=== PATIENT | male | born 1975 | race Caucasian/White ===

== ENCOUNTER 2017-05-01 11:58 | Observation (INO) ==
--- NOTE | 2017-05-01 12:10 | Emergency Department Note ---
Disposition Clinical Impression: Chest pain Disposition: Admitted As Inpatient Condition: Good General Adult HPI - General Chief complaint: ED Chest Pain Stated complaint: blood clot Time Seen by Provider: 05/01/17 12:05 Source: patient Limitations: no limitations - History of Present Illness Pain Scale: 4 - Related Data Home Medications Medication Instructions Recorded Confirmed ALPRAZolam [Xanax 0.5 MG Tablet] 0.5 mg PO QID PRN 05/01/17 05/01/17 Aspirin 325 mg PO DAILY 05/01/17 05/01/17 Atorvastatin Calcium [Lipitor] 20 mg PO QPM 05/01/17 05/01/17 Lisinopril [Zestril] 20 mg PO DAILY 05/01/17 05/01/17 Metoprolol Succinate 25 mg PO DAILY 05/01/17 05/01/17 Omeprazole [PriLOSEC] 40 mg PO DAILY 05/01/17 05/01/17 Primidone [Mysoline] 25 mg PO BID 05/01/17 05/01/17 traZODone [TraZODone] 50 - 100 mg PO HS 05/01/17 05/01/17 Allergies Allergy/AdvReac Type Severity Reaction Status Date / Time hydrocodone [From [place]] AdvReac heart Verified 12/26/16 16:48 racing ketorolac [From Toradol] AdvReac Hallucinati Verified 12/26/16 16:48 ng Past Medical History - Past Medical History Medical history: Reports: atrial fibrillation, hyperlipidemia, hypertension Surgical history: Reports: orthopedic, other Psychiatric history: Reports: anxiety, bipolar - Social History Smoking Status: Former smoker Smokeless Tobacco Status: No Alcohol use: Reports: none Drug use: Reports: none Physical Exam - General Limitations: no limitations General appearance: alert, in no apparent distress Course Vital Signs Temperature 98.1 F 05/01/17 11:59 Pulse Rate 80 05/01/17 11:59 Respiratory Rate 18 05/01/17 11:59 Blood Pressure 152/110 05/01/17 11:59 O2 Sat by Pulse Oximetry 96 05/01/17 11:59 Temperature 98.7 F 05/02/17 11:18 Pulse Rate 87 05/02/17 11:18 Respiratory Rate 18 05/02/17 11:18 Blood Pressure 119/79 05/02/17 11:18 O2 Sat by Pulse Oximetry 93 05/02/17 11:18 Oxygen Delivery Oxygen Delivery Room Air Medical Decision Making - Lab Data Result diagrams: 05/02/17 06:17 05/02/17 06:17 Lab Results 05/01/17 05/01/17 Range/Units 12:27 12:27 Sodium 138 (136-145) mEq/L Potassium 4.6 H (3.5-4.5) mEq/L Chloride 107 (98-109) mEq/L Carbon Dioxide 20 (19-29) mEq/L BUN 14 (8-26) mg/dL Creatinine 0.82 (0.72-1.25) mg/dL Est GFR ( Amer) > 60 (> 60) Est GFR (Non-Af Amer) > 60 (> 60) BUN/Creatinine Ratio 17 (6-26) Glucose 102 H (70-99) mg/dL Calculated Osmolality 287 (280-300) Calcium 9.5 (8.6-10.8) mg/dL Troponin I 0.00 (0-0.03) ng/mL Attestation Statement - Attestation Attestation: I examined this patient and my medical decision-making was reviewed with the Resident Physician. I agree with the documented findings, disposition and treatment plan as described except to the extent set forth below. [id number] time provided Patient arrives at the recommendation of his primary care provider after having an abnormal lab value as an [id number] was greater than 4000. He does complain of chest discomfort. He does not appear in any acute distress on exam
[2017-05-01 12:50] LABS: BUN/Creatinine Ratio 17 (6-26); Blood Urea Nitrogen 14 mg/dL (8-26); Calcium 9.5 mg/dL (8.6-10.8); Carbon Dioxide 20 mEq/L (19-29); Chloride 107 mEq/L (98-109); Glucose 102 mg/dL (70-99); Osmolality,Calculated 287 (280-300); Sodium 138 mEq/L (136-145); eGFR For African Americans > 60 (> 60); eGFR For Non-African Americans > 60 (> 60)
[2017-05-01 12:51] LABS: Potassium 4.6 mEq/L (3.5-4.5)
--- NOTE | 2017-05-01 14:06 | Emergency Department Note ---
Disposition Clinical Impression: Chest pain Qualifiers: Chest pain type: other chest pain Qualified Code(s): R07.89 - Other chest pain ; R07.8 - Other chest pain Disposition: Admitted As Inpatient Condition: Good Referrals: Jimy Sharif MD [Primary Care Provider] - Forms: ED Satisfaction Letter Time of Disposition: 14:33 General Adult HPI - General Chief complaint: ED Chest Pain Stated complaint: blood clot Time Seen by Provider: 05/01/17 12:05 Source: patient Mode of arrival: ambulatory Limitations: no limitations Nursing Notes Reviewed: Yes Vital Signs Reviewed: Yes - History of Present Illness HPI Narrative: Patient is a 41-year-old male presented to the emergency Department chief complaint of elevated d-dimer done as an outpatient. Patient states for the last week he has had constant substernal chest pressure along with increased shortness of breath. He went to his primary care physician to complete an EKG, chest x-ray, troponin, d-dimer. All other lab work was within normal limits. He states his d-dimer was elevated at around 4000. His primary care physician called him and told him he needed to come to the emergency department to get ruled out for a blood clot. Patient is otherwise in no acute distress. He states he is still currently having chest pressure but states he has severe anxiety and these are similar symptoms. He denies any history of blood clot, recent long travels, hormonal replacement, family history of blood clots. Patient does have a significant past medical history of A. fib and takes a baby aspirin daily. Pain Scale: 4 - Related Data Previous Rx's Medication Instructions Recorded Benzonatate [Tessalon] 100 mg PO TID PRN #15 capsule 05/17/15 Naproxen Sodium [Aleve] 440 mg PO BID #20 capsule 07/22/16 Allergies Allergy/AdvReac Type Severity Reaction Status Date / Time hydrocodone [From [place]] AdvReac heart Verified 12/26/16 16:48 racing ketorolac [From Toradol] AdvReac Hallucinati Verified 12/26/16 16:48 ng All systems ED: reviewed and negative except as stated. Constitutional: Denies: fever, chills Eyes: Reports: as per HPI ENT ED: Reports: as per HPI Cardiovascular: Reports: chest pain, dyspnea on exertion. Denies: palpitations Respiratory: Reports: dyspnea. Denies: cough, wheezes, hemoptysis Gastrointestinal: Denies: abdominal pain, nausea, vomiting Genitourinary: Reports: as per HPI Musculoskeletal: Reports: as per HPI Integumentary: Reports: as per HPI Neurological: Denies: weakness, numbness, paresthesias Psychiatric: Reports: anxiety Endocrine: Reports: as per HPI Hematological/Lymphatic: Reports: as per HPI Allergic/Immunologic: Reports: as per HPI Past Medical History - Past Medical History Attestation: Yes The following information was validated with the patient. Medical history: Reports: atrial fibrillation, hyperlipidemia, hypertension Surgical history: Reports: orthopedic, other Psychiatric history: Reports: anxiety, bipolar - Social History Smoking Status: Former smoker Smokeless Tobacco Status: No Alcohol use: Reports: none Drug use: Reports: none Physical Exam - General Limitations: no limitations General appearance: alert, in no apparent distress - Head Head exam: atraumatic, normocephalic, normal inspection - Eye Eye exam: Present: normal appearance. Absent: scleral icterus, conjunctival injection - Chest Chest inspection: Present: normal inspection, symmetric chest wall rise. Absent : tenderness, rash - Respiratory Respiratory exam: Present: normal lung sounds bilaterally. Absent: respiratory distress, wheezes - Cardiovascular Cardiovascular exam: Present: regular rate, normal rhythm, normal heart sounds - Abdominal Exam Abdominal exam: Present: soft, Non-Tender. Absent: distention, guarding, rebound - Extremities Exam Extremities exam: Present: normal inspection, full ROM - Back Exam Back exam: Present: normal inspection. Absent: CVA tenderness (R), CVA tenderness (L) - Neurological Exam Neurological exam: Present: alert, oriented X3 - Psychiatric Psychiatric exam: Present: normal affect, anxious - Skin Skin exam: Present: warm, intact Course Course Narrative: Patient is a 41-year-old male presenting to the emergency department which complaint of shortness of breath and chest pain along with an elevated d-dimer for one week. Patient was sent by his primary care physician due to an elevated d-dimer of around 4100. Patient states he also had left lower extremity pain. We will obtain a Doppler of the left lower extremity along with a CTA. We will obtain basic lab work including troponin and BNP. Patient most likely will be admitted to the hospitalist team due to elevated hearts were due to significant past family history and symptoms now. Disposition pending results. Patient's alert and oriented 3 in the room with stable vital signs at this time. - Reevaluation(s) Reevaluation #1: All patient's lab work has come back within normal limits including a CTA and Doppler study of left lower extremity. The patient's heart score is 3. I spoke with the patient who agrees to be admitted to the hospital at this time for chest pain rule out. I spoke with the hospitalist Aric Bartholomew who agrees to accept the patient. Time: 14:32 Vital Signs Temperature 98.1 F 05/01/17 11:59 Pulse Rate 80 05/01/17 11:59 Respiratory Rate 18 05/01/17 11:59 Blood Pressure 152/110 05/01/17 11:59 O2 Sat by Pulse Oximetry 96 05/01/17 11:59 Temperature 98.1 F 05/01/17 11:59 Pulse Rate 80 05/01/17 11:59 Respiratory Rate 18 05/01/17 11:59 Blood Pressure 152/110 05/01/17 11:59 O2 Sat by Pulse Oximetry 96 05/01/17 11:59 Oxygen Delivery Oxygen Delivery Room Air Medical Decision Making - Lab Data Result diagrams: 05/01/17 12:27 Lab Results 05/01/17 05/01/17 Range/Units 12:27 12:27 Sodium 138 (136-145) mEq/L Potassium 4.6 H (3.5-4.5) mEq/L Chloride 107 (98-109) mEq/L Carbon Dioxide 20 (19-29) mEq/L BUN 14 (8-26) mg/dL Creatinine 0.82 (0.72-1.25) mg/dL Est GFR ( Amer) > 60 (> 60) Est GFR (Non-Af Amer) > 60 (> 60) BUN/Creatinine Ratio 17 (6-26) Glucose 102 H (70-99) mg/dL Calculated Osmolality 287 (280-300) Calcium 9.5 (8.6-10.8) mg/dL Troponin I 0.00 (0-0.03) ng/mL - EKG Data EKG #1 EKG attestation: Yes I reviewed and interpreted this EKG. EKG results narrative: Sinus rhythm. 75 bpm. Left axis deviation. HI interval 142, QRS 104, QTC 399. No signs of ST segment elevation or ischemia at this time. When compared to previous EKG completed on 12/26/2016 no specific changes noted.
[2017-05-01] MEDS ORDERED: Acetaminophen 325 MG TABLET PO PRN (18:01)
[2017-05-01] MEDS ORDERED: Naloxone 0.4 MG/ML INJ IVP PRN (18:01)
[2017-05-01] MEDS ORDERED: ALPRAZolam 0.5 MG TABLET PO PRN (18:05)
--- NOTE | 2017-05-01 18:11 | Internal Med History&Physical ---
Date of Encounter: 05/02/17 Time of Encounter: 18:08 Assessment and Plan (1) Chest pain Current visit: Yes Status: Acute Patient has a retrosternal, non-remitting, localized, chest pain which worsens with movement and respiration and relieved by rest. This is nonanginal chest pain. Patient also has a shortness of breath. Patient was evaluated by primary care and recommended workup for elevated d- dimer. CTA from emergency room: Negative for pulmonary embolism. Patient recently lost his job, girlfriend, house and presently lives with his sister. Patient is under a lot of stress. Plan: -Admitted as an observation. -ASA/statin/lisinopril. Metoprolol on hold due to possible stress test tomorrow. -Nothing by mouth after midnight -Echocardiogram. Qualifiers: Chest pain type: other chest pain Qualified Code(s): R07.89 - Other chest pain; R07.8 - Other chest pain (2) Left-sided chest wall pain Current visit: No Status: Acute Likely muscular skeletal. (3) DVT prophylaxis Current visit: Yes Status: Acute SCD Medical decision making: This patient has a moderate to severe risk of worsening in spite of being on appropriate medication due to the underlying comorbid conditions. Internal Medicine - H&P: HPI Chief complaint: Chest pain/shortness of breath Admitted From: Emergency Dept Plans for Post Hospital Care: Home History of present illness: PCP: Dr. Cardona Past medical history: Atrial fibrillation on aspirin, hyperlipidemia, hypertension. Brief history of present illness: Patient was seen by primary care physician sometime early this week.Basic labs were drawn.Patient was told to come to the hospital to get evaluation done for possible blood clots as his d-dimer was elevated. Patient was supposed to see primary care physician but unfortunately could not get the appointment and that is the reason he came to the emergency room. In the emergency room he was evaluated. Patient complains of chest pain which is retrosternal in position nonradiating and localized worsening with them position/movement and relieved by rest. Patient also complains of shortness of breath. Patient denies nausea, vomiting, abdominal pain, easiness or diarrhea. Course in the emergency room: Basic labs were drawn again. It showed potassium of 4.6 with breast electro-lytes within normal limit. CTA was done which was negative for any acute pulmonary embolism. Reason for admission: Chest pain to rule out ACS. Family history: noncontributory. Past Med Surg Social Fam HX - Past Medical History Medical history: atrial fibrillation, hyperlipidemia, hypertension Psychiatric history: anxiety, bipolar - Past Surgical History Surgical History: orthopedic, other - Social History Smoking Status: Former smoker Smokeless Tobacco Status: No Alcohol use: none Drug use: none - Family History Father Name: Chalo Cee Living Status: Age at : 62 Cause of : lung cancer Hx Family Cancer: Yes Internal Medicine - H&P: Meds ALPRAZolam [Xanax 0.5 MG Tablet] 0.5 mg PO QID PRN 05/01/17 [History] Aspirin 325 mg PO DAILY 05/01/17 [History] Atorvastatin Calcium [Lipitor] 20 mg PO QPM 05/01/17 [History] Lisinopril [Zestril] 20 mg PO DAILY 05/01/17 [History] Metoprolol Succinate 25 mg PO DAILY 05/01/17 [History] Omeprazole [PriLOSEC] 40 mg PO DAILY 05/01/17 [History] Primidone [Mysoline] 25 mg PO BID 05/01/17 [History] traZODone [TraZODone] 50 - 100 mg PO HS 05/01/17 [History] 3 Allergy/AdvReac Type Severity Reaction Status Date / Time hydrocodone [From [place]] AdvReac heart Verified 12/26/16 16:48 racing ketorolac [From Toradol] AdvReac Hallucinati Verified 12/26/16 16:48 ng All Systems PM: A 10-system review of systems was performed and is negative for pertinent findings except as documented above in the HPI. - Constitutional Constitutional: no chills, no fever(s), no night sweats - EENT Eyes: no change in vision, no discharge, no pain, no photophobia Ears: no ear discharge, no ear pain, no tinnitus Nose, mouth and throat: no dysphagia, no nasal discharge, no neck pain, no sore throat - Cardiovascular Cardiovascular ROS IM: chest pain, diaphoresis, dyspnea, dyspnea on exertion, no lightheadedness, no palpitations, no syncope - Respiratory Respiratory: no cough, no dyspnea, no wheezing, no excessive phlegm production - Gastrointestinal Gastrointestinal: no abdominal pain, no diarrhea, no hematemesis, no hematochezia, no melena, no nausea, no vomiting - Musculoskeletal Musculoskeletal ROS IM: no numbness, no tingling - Integumentary Integumentary IM: no rash, no unusual bruising - Neurological Neurological ROS: no confusion, no convulsions, no focal weakness, no numbness, no tingling, no tremor(s) - Hematologic/Lymphatic Hematologic/Lymphatic: no easy bruising - Constitutional Vitals: Temp Pulse Resp BP Pulse Ox 98.3 F 67 16 122/80 94 05/01/17 16:06 05/01/17 16:06 05/01/17 16:06 05/01/17 16:06 05/01/17 16:06 General appearance: Present: A&O X 3, pleasant, no acute distress, answers questions appropriately - Head Head exam: Present: atraumatic, normocephalic - Eye Eye exam: Present: PERRL, conjuntiva pink, sclera anicteric Pupils: Present: PERRL - Neck Neck exam general surgery: Present: supple, trachea midline. Absent: lymphadenopathy - Respiratory Respiratory exam: Present: CTAB. Absent: accessory muscle use, rales, rhonchi, wheezes - Cardiovascular Cardiovascular exam: Present: RRR, +S1, +S2. Absent: diastolic murmur, gallop, rubs, systolic murmur - GI/Abdominal GI/Abdominal exam: Present: normal bowel sounds, soft, no peritoneal signs. Absent: distended, tenderness - Extremities Exam Extremities exam: Present: warm, radial pulses palpable and symmetrical. Absent : calf tenderness, cyanotic, pedal edema - Neurological Exam Neurological exam: Present: CN II-XII intact, oriented X3, no focal deficits. Absent: pronater drift, facial droop, speech deficit - Skin Skin exam: Present: dry, intact Internal Med - H&P Results - Labs CBC & Chem 7: 05/02/17 06:17 05/02/17 06:17
--- NOTE | 2017-05-01 18:23 | Electrocardiograph Report ---
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
[2017-05-01] MEDS: Lisinopril 20 MG TABLET PO SCH (18:46)
[2017-05-01] MEDS: Aspirin 325 MG TABLET PO SCH (18:46)
[2017-05-01] MEDS ORDERED: Perflutren Lipid Microsphere 1.3 ML in 0.9 % Sodium Chloride 8.7 ML IVP ONE (19:07)
[2017-05-01] MEDS: Primidone 50 MG TABLET PO SCH (21:00)
[2017-05-01] MEDS: Famotidine 20 MG TABLET PO SCH (21:00)
[2017-05-02 07:17] LABS: INR 1.1; Prothrombin Time 11.4 Seconds (9.4-12.1)
[2017-05-02 07:20] LABS: Activated Partial Thrombo Time 27.8 Seconds (26.0-36.0)
[2017-05-02 07:28] LABS: Alanine Aminotransferase 112 Units/L (0-55); Albumin 3.6 g/dL (3.5-5.0); Alkaline Phosphatase 93 Units/L (38-126); Aspartate Amino Transferase 50 Units/L (5-34); BUN/Creatinine Ratio 19 (6-26); Bilirubin,Total 1.3 mg/dL (0.2-1.2); Blood Urea Nitrogen 14 mg/dL (8-26); Carbon Dioxide 24 mEq/L (19-29); Chloride 107 mEq/L (98-109); Chol/HDL Ratio 4.6 (0-4.9); Cholesterol 157 mg/dL (< 200); Globulin 3.6 g/dL (2.4-3.5); Glucose 85 mg/dL (70-99); HDL Cholesterol 34 mg/dL (40-59); LDL Cholesterol,Calculated 105 mg/dL (0-99); Magnesium 2.1 mg/dL (1.6-2.6); Osmolality,Calculated 290 (280-300); Phosphorous 3.7 mg/dL (2.3-4.7); Potassium 3.6 mEq/L (3.5-4.5); Sodium 140 mEq/L (136-145); Total Protein 7.2 g/dL (6.0-8.3); Triglycerides 88 mg/dL (< 150); eGFR For African Americans > 60 (> 60); eGFR For Non-African Americans > 60 (> 60)
[2017-05-02 07:49] LABS: Basophils # 0.1 K/mcL (0.0-0.2); Basophils % 0.5 %; Eosinophils # 0.2 K/mcL (0.0-0.6); Eosinophils % 1.7 %; Hematocrit 47.9 % (37.5-50.1); Immature Granulocytes % 0.3 % (0-4); Lymphocytes # 3.4 K/mcL (0.6-4.6); Lymphocytes % 34.5 %; Mean Corpuscular HGB Conc 33.4 g/dL (31.6-35.5); Mean Corpuscular Hemoglobin 28.3 pg (28.0-33.3); Mean Corpuscular Volume 84.6 fL (83.0-100.0); Monocytes # 0.7 K/mcL (0.0-1.3); Monocytes % 7.2 %; Neutrophils # 5.4 K/mcL (1.6-8.9); Platelet Count 278 K/mcL (140-400); Red Blood Count 5.66 M/mcL (4.19-5.50); Red Cell Distribution Width 14.3 % (11.5-14.5); Segmented Neutrophils % 55.8 %
[2017-05-02 11:19] VITALS: BP 119/79
[2017-05-02] MEDS: Aspirin 325 MG TABLET PO SCH (11:24)
[2017-05-02] MEDS: Primidone 50 MG TABLET PO SCH (11:24)
[2017-05-02] MEDS: Famotidine 20 MG TABLET PO SCH (11:25)
[2017-05-02] MEDS: Lisinopril 20 MG TABLET PO SCH (11:25)
--- NOTE | 2017-05-02 14:19 | Discharge Summary ---
Date of Encounter: 05/02/17 Time of Encounter: 14:16 - Discharge Diagnosis (1) Chest pain Priority: Primary Status: Acute Qualifiers: Chest pain type: other chest pain Qualified Code(s): R07.89 - Other chest pain; R07.8 - Other chest pain (2) Left-sided chest wall pain Priority: Primary Status: Acute (3) DVT prophylaxis Priority: Secondary Status: Acute (4) Hep C w/ coma, chronic Priority: Secondary Status: Acute - Discharge Medications Home Medications: ALPRAZolam [Xanax 0.5 MG Tablet] 0.5 mg PO QID PRN 05/01/17 [History] Aspirin 325 mg PO DAILY 05/01/17 [History] Atorvastatin Calcium [Lipitor] 20 mg PO QPM 05/01/17 [History] Lisinopril [Zestril] 20 mg PO DAILY 05/01/17 [History] Metoprolol Succinate 25 mg PO DAILY 05/01/17 [History] Omeprazole [PriLOSEC] 40 mg PO DAILY 05/01/17 [History] Primidone [Mysoline] 25 mg PO BID 05/01/17 [History] traZODone [TraZODone] 50 - 100 mg PO HS 05/01/17 [History] Allergies/Adverse Reactions: 3 Allergy/AdvReac Type Severity Reaction Status Date / Time hydrocodone [From [place]] AdvReac heart Verified 12/26/16 16:48 racing ketorolac [From Toradol] AdvReac Hallucinati Verified 12/26/16 16:48 ng Procedures/tests Complete & Pending: Procedures Performed prior 72 hours Category Date Time Status EV echocardiogram w enhance Routine Y 05/01/17 18:04 Completed Date of admission: 05/01/17 14:38 Primary care physician: Jimy Sharif MD Discharging clinician: Todd Ruiz - Patient Status Disposition: Home, Self-Care Condition: Good Functional capacity at discharge: independent ambulation Overall status at discharge: patient is progressing back to baseline - Discharge Instructions Instructions: Chest Pain (DC) Additional Instructions: Follow-up appointments: If there is not an appointment listed below, please call your physician and schedule a follow-up appointment. If you have congestive heart failure and your symptoms return, make an appointment with your physician. Medication List: Carry an up to date list of medications you are taking at all time. We have given you an updated medication list including any new medications that you have been prescribed. Please provide that list to your primary provider Symptoms: If your condition changes or you experience any of the following symptoms, notify your physician immediately: Unusual or worsening pain, fever, persistent nausea and vomiting, bleeding, increase in swelling (especially in your legs), sudden weight gain, extreme dizziness, chest pain, increased drainage or redness from a wound or incision. Go to the emergency department if you experience a problem with breathing. Weights: If you have a history of swelling or shortness of breath, weigh yourself daily and notify your physician if you have a weight gain of two or more pounds in one day or 5 or more pounds in a week. If you experience any of the warning signs for stroke: Sudden numbness or weakness of the face, arm or leg; especially on one side of the body, sudden confusion, trouble speaking or understanding, sudden trouble seeing in one or both eyes, sudden trouble walking, dizziness, loss of balance or coordination, sudden sever headache with no cause; Call 911 or go to the emergency room. Stroke is a medical emergency. Some risk factors for stroke: Age, cigarette smoking, diabetes, excessive alcohol consumption, family history , high blood pressure, overweight, physical inactivity, prior stroke, heart attack, diagnosis of carotid artery stenosis or other artery disease. If you smoke, STOP: Smoking or tobacco use significantly increases your risk of heart and lung disease. Your chance of disease greatly increases if you continue to smoke. For more information, call the [place] tobacco quit line for smoking cessation QUIT-NOW ( ) - Diet and Activity Activity: increase activity as tolerated Diet: low fat, low cholesterol, low salt diet Interval History: PCP: Dr. Cardona Past medical history: Atrial fibrillation on aspirin, hyperlipidemia, hypertension. Brief history of present illness: Patient was seen by primary care physician sometime early this week.Basic labs were drawn.Patient was told to come to the hospital to get evaluation done for possible blood clots as his d-dimer was elevated. Patient was supposed to see primary care physician but unfortunately could not get the appointment and that is the reason he came to the emergency room. In the emergency room he was evaluated. Patient complains of chest pain which is retrosternal in position nonradiating and localized worsening with them position/movement and relieved by rest. Patient also complains of shortness of breath. Patient denies nausea, vomiting, abdominal pain, easiness or diarrhea. Course in the emergency room: Basic labs were drawn again. It showed potassium of 4.6 with breast electro-lytes within normal limit. CTA was done which was negative for any acute pulmonary embolism. Reason for admission: Chest pain to rule out ACS. Hospital course: Course in the Hospital: Patient was hospitalized. Troponins 3 were done which were negative. His EKG was persistently normal. His d-dimer was elevated. As discussed before patient's CTA was negative for any pulmonary embolism. Patient 's bilirubin is 1.3 and AST was 50 along with ALT of 112. As we know this patient has hepatitis C positive. Patient was referred previously to gastroenterology. Patient is not on any treatment for hepatitis C. Elevated liver enzymes along with elevated d-dimer, is likely all secondary to inflammation from hepatitis C. Patient underwent echocardiogram. His ejection fraction was more than 50%. There were no regional wall motion abnormality. Patient's daughter and his son-in-law were in the room. Patient is keen to go home. Patient is not keen to have stress test as inpatient. Patient prefers that he would like to do a stress test after discussion with his primary care as outpatient. I explained patient the risk of getting stress test as outpatient and he verbalized understanding. The risk of getting stress test as outpatient, possible NV/unstable angina/recurrent chest pain/heart failure/. Patient still insists to do the stress test as outpatient. Plan: Patient will go home today. will follow up with primary care in 1-2 weeks. all questions answered. - Time Spent with Patient Total time spent providing and/or coordinating discharge services: - Constitutional Vitals: Temp Pulse Resp BP Pulse Ox 98.7 F 87 18 119/79 93 05/02/17 11:18 05/02/17 11:18 05/02/17 11:18 05/02/17 11:18 05/02/17 11:18 General appearance: Present: A&O X 3, pleasant, no acute distress, answers questions appropriately - Head Head exam: Present: atraumatic, normocephalic - Eye Eye exam: Present: PERRL, conjuntiva pink, sclera anicteric Pupils: Present: PERRL - Neck Neck exam general surgery: Present: supple, trachea midline. Absent: lymphadenopathy - Respiratory Respiratory exam: Present: CTAB. Absent: accessory muscle use, rales, rhonchi, wheezes - Cardiovascular Cardiovascular exam: Present: RRR, +S1, +S2. Absent: diastolic murmur, gallop, rubs, systolic murmur - GI/Abdominal GI/Abdominal exam: Present: normal bowel sounds, soft, no peritoneal signs. Absent: distended, tenderness - Extremities Exam Extremities exam: Present: warm, radial pulses palpable and symmetrical. Absent : calf tenderness, cyanotic, pedal edema - Neurological Exam Neurological exam: Present: CN II-XII intact, oriented X3, no focal deficits. Absent: pronater drift, facial droop, speech deficit - Skin Skin exam: Present: dry, intact
== END 2017-05-02 14:30 | disposition home or self-care (01) ==
LOC: 3BNU 11:58 → EMEROO 11:58 → 3BNU 15:30
PROVIDERS: ADMIT Internal Medicine; ATTEND Registered Nurse